=== PATIENT | male | born 1970 | race Caucasian/White ===

== ENCOUNTER 2016-11-02 13:45 | Emergency (ER) | payer MEDICARE, MEDICAID ==
[~2016-11-02] VITALS: Ht 175.3 cm; Wt 217.7 kg
--- NOTE | 2016-11-02 14:02 | ED.ADGEN ---
Adult General Chief Complaint Chief Complaint: anger HPI HPI Patient is a 46 year old morbidly obese male who presents with anger and aggression towards healthcare workers after not being able to sleep for the past 24 hours. Patient states his CPAP broken his upset that a primary care physician is unable to see him for Kassi to obtain and order for a new machine. Patient denies specific intent or plan to kill or harm healthcare worker or any other individual. He expresses frustration and what he considers the lack of willingness for anyone to reach out and help him with his current situation and wants to tell someone off and wants to tell someone off.. Patient is not suicidal. Review of Systems Review of Systems ROS as per HPI. Allergies Allergies Allergies Uncoded Allergies Type Severity Reaction Last Updated Verified Steroids Adverse Reaction Unknown 11/02/16 Physical Exam Physical Exam Constitutional: Well developed, well nourished, no acute distress, non-toxic appearance. [] HENT: Normocephalic, atraumatic, bilateral external ears normal, oropharynx moist, no oral exudates, nose normal. [] Eyes: PERRLA, EOMI, conjunctiva normal, no discharge. [] Neck: Normal range of motion, no tenderness, supple, no stridor. [] Cardiovascular:Heart rate regular rhythm, no murmur [] Lungs & Thorax: Bilateral breath sounds clear to auscultation [] Abdomen: Bowel sounds normal, soft, no tenderness, no masses, no pulsatile masses. [] Skin: Warm, dry, no erythema, no rash. [] Back: No tenderness, no CVA tenderness. [] Extremities: No tenderness, no cyanosis, no clubbing, ROM intact, no edema. [] Neurologic: Alert and oriented X 3, normal motor function, normal sensory function, no focal deficits noted. [] Psychologic: Affect normal, manipulative behavior. [] Current Patient Data Vital Signs Vital Signs Date Time Temp Pulse Resp B/P (MAP) Pulse Ox O2 Delivery O2 Flow Rate FiO2 11/02/16 15:34 54 25 109/72 (84) 97 Room Air 11/02/16 14:00 98.8 98.8 EKG EKG [] Radiology/Procedures Radiology/Procedures [] Course & Med Decision Making Course & Med Decision Making Pertinent Labs and Imaging studies reviewed. (See chart for details) [Patient is very frustrated and upset that he is unable to get a replacement CPAP machine without first being seen by a physician and second having a sleep study ordered. He presents with the ER with demands that requests be immediately taken care of. Patient does not have any respiratory symptoms or complaints while in the emergency department, but rather feels frustrated due to his lack of sleep. When questioned specifically if the patient is homicidal or suicidal, he denies any as intentions of killing or harming himself but states rather that he is frustrated with the situation. Attempts were made to accommodate the patient's request and obtaining a replacement CPAP while the patient was in the emergency department. However, we were unable to find replacement CPAP for the patient. 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 Patient is discharged in stable condition. Courtesy cookie de la rosa was provided. Dragon Disclaimer Dragon Disclaimer This electronic medical record was generated, in whole or in part, using a voice recognition dictation system. HENOK WOODARD DO Nov 02, 2016 14:02
[2016-11-02 15:34] VITALS: BP 109/72
== END 2016-11-02 16:00 | disposition home or self-care (01) ==
LOC: ER 13:45
DX: F91.2 Conduct disorder, adolescent-onset type (principal); R45.4 Irritability and anger; E66.01 Morbid (severe) obesity due to excess calories; Z68.45 Body mass index [BMI] 70 or greater, adult; Z88.8 Allergy status to other drugs, medicaments and biological substances
CPT/HCPCS: 99284

== ENCOUNTER 2017-03-17 02:00 | Inpatient (IN) | payer MEDICARE, OTHER ==
[~2017-03-17] VITALS: Ht 175.3 cm; Wt 193.2 kg
[2017-03-17] VITALS (17 sets, daily range): BP systolic 100–175; BP diastolic 3–97
[2017-03-17] MEDS: IV NORMAL SALINE 1000ML BAG 1,000 ML IV SCH ×3 (03:45→11:45)
[2017-03-17] MEDS ORDERED: POTASSIUM CHLORIDE 20 MEQ TABLET.ER. PO PRN ×2 (03:45)
[2017-03-17] MEDS ORDERED: INSULIN REGULAR VIAL 150 UNIT in 0.9 % SODIUM CHLORIDE 150ML 150 ML IV PRN (03:45)
[2017-03-17 04:14] LABS: BASO # 0.1 x10^3/uL (0.0-0.2); BASO % 1 % (0-3); EOS % 0 % (0-3); HEMATOCRIT 48.1 % (39.0-53.0); HEMOGLOBIN 16.7 g/dL (13.0-17.5); LYMPH # 2.3 x10^3/uL (1.0-4.8); LYMPH % 22 % (24-48); MEAN CORPUSCULAR HEMOGLOBIN 33 pg (25-35); MEAN CORPUSCULAR HGB CONC 35 g/dL (31-37); MEAN CORPUSCULAR VOLUME 94 fL (79-100); MONO % 6 % (0-9); NEUT % 71 % (31-73); PLATELET COUNT 171 x10^3/uL (140-400); RED BLOOD COUNT 5.13 x10^6/uL (4.30-5.70); RED CELL DISTRIBUTION WIDTH 13.7 % (11.5-14.5); WHITE BLOOD COUNT 10.7 x10^3/uL (4.0-11.0)
[2017-03-17 04:35] LABS: CALCIUM 7.9 mg/dL (8.5-10.1); CREATININE 1.3 mg/dL (0.7-1.3); GFR 59.7; MAGNESIUM 2.1 mg/dL (1.8-2.4); PHOSPHORUS 2.4 mg/dL (2.6-4.7); POTASSIUM 3.1 mmol/L (3.5-5.1)
[2017-03-17] MEDS ORDERED: POTASSIUM CHLORIDE 20 MEQ TABLET.ER. PO ONE (05:00)
[2017-03-17] MEDS: IV DEXTROSE 5 %-0.45 % NACL 1,000 ML IV SCH ×3 (05:02→12:33)
[2017-03-17] MEDS ORDERED: ACETAMINOPHEN 500 MG TABLET PO PRN (08:45)
[2017-03-17] MEDS ORDERED: HYDROcodone/APAP 5/325MG 1 TAB TABLET PO PRN (08:45)
[2017-03-17] MEDS ORDERED: CALCIUM CARBONATE 500 MG TAB.CHEW PO PRN (08:45)
[2017-03-17] MEDS ORDERED: IBUPROFEN 400 MG TABLET. PO PRN (08:45)
[2017-03-17] MEDS ORDERED: ONDANSETRON ODT 4 MG TAB.RAPDIS. PO PRN (08:45)
[2017-03-17] MEDS ORDERED: ONDANSETRON PF 4 MG/2 ML VIAL. IV PRN (08:45)
[2017-03-17 09:15] LABS: CALCIUM 8.1 mg/dL (8.5-10.1); CREATININE 1.2 mg/dL (0.7-1.3); GFR 65.5; POTASSIUM 3.5 mmol/L (3.5-5.1)
[2017-03-17] MEDS: POTASSIUM CHLORIDE 20 MEQ TABLET.ER. PO PRN ×2 (09:26→14:20)
--- NOTE | 2017-03-17 10:42 | PDOC1 ---
History and Physical Date of Admission Date of Admission DATE: 03/17/17 TIME: 10:33 Identification/Chief Complaint Chief Complaint Lethargy, "thirsty as hell" Problems: Source Source: Caregiver, Chart review, Patient History of Present Illness History of Present Illness 37-year-old male, morbidly obese with a BMI of 64.5, no known prior medical history, does not take any meds at home. Admitted from [facility] transferred here because of DKA. He has been heat feeling lethargic and "thirsty as hell" , polyuria, polydipsia for the past 2 weeks. He was told to be prediabetic about a year ago. Not on any medications. Hypertensive heart disease runs in the family with his father at age in the 40s. He was advised aspirin daily but he does not take 1. He claims he sometimes takes fish oil when he feels like it". Does not smoke and denies heavy etoh He was found have a blood sugar greater than 300. He was in DKA with a gap of night now 19 bicarbonate of 9, no pH available to me. The rest of his labs are the fall are as follows: Sodium 130,Potassium 3.1 on potassium replacement therapy Insulin drip is running along with dextrose at 2 50 mL an hour because blood sugar is less than 250 and but still a gap is elevated at 19. Creatinine 1.3. Calcium 7.9. Phosphorus is low at 2.4. I feel like this gentleman is a good candidate for metformin. We'll see how he trends if he needs insulin on discharge. But definitely diabetes education is in order Keep in ICU for now as gap is still elevated currently in the insulin drip and dextrose drip. But he does feel better and is actually hungry. We'll start an ADA diet. Past Medical History Cardiovascular: No pertinent hx Pulmonary: No pertinent hx GI: No pertinent hx Heme/Onc: No pertinent hx Hepatobiliary: No pertinent hx Psych: No pertinent hx Rheumatologic: No pertinent hx Infectious disease: No pertinent hx ENT: No pertinent hx Renal/: No pertinent hx Endocrine: No pertinent hx Dermatology: No pertinent hx Past Surgical History Past Surgical History: No pertinent history Family History Family History: Heart Disease, Hypertension Social History Smoke: No ALCOHOL: none Drugs: None Current Medications Current Medications Current Medications Potassium Chloride (Klor-Con) 20 meq PRN Q1HR PRN PO K level is 4 to 5 mEq/L; Start 03/17/17 at 03:45 Potassium Chloride (Klor-Con) 40 meq PRN Q1HR PRN PO K level is 3 to 3.9 mEq/L Last administered on 03/17/17 09:26; Start 03/17/17 at 03:45 Potassium Chloride (Klor-Con) 60 meq PRN Q1HR PRN PO K level < 3 mEq/L; Start 03/17/17 at 03:45 Sodium Chloride 1,000 ml @ 250 mls/hr Q4H IV ; Start 03/17/17 at 03:45 Sodium Chloride 1,000 ml @ 250 mls/hr Q4H IV ; Start 03/17/17 at 03:45 Dextrose/Sodium Chloride 1,000 ml @ 250 mls/hr Q4H IV Last administered on 08:04; Start 03/17/17 at 03:45 Insulin Human Regular 150 unit/ Sodium Chloride 151.5 ml @ 0 mls/hr CONT PRN PRN IV PER PROTOCOL Last administered on 03/17/17 05:05; Start 03/17/17 at 03 :45 Potassium Chloride (Klor-Con) 40 meq 1X ONCE PO Last administered on 05:06; Start 03/17/17 at 05:00; Stop 03/17/17 at 05:02; Status DC Ondansetron HCl (Zofran) 4 mg PRN Q6HRS PRN IV NAUSEA/VOMITING; Start at 08:45 Ondansetron HCl (Zofran Odt) 4 mg PRN Q6HRS PRN PO NAUSEA/VOMITING; Start at 08:45 Acetaminophen (Tylenol) 500 mg PRN Q6HRS PRN PO MILD PAIN / TEMP Last administered on 03/17/17 08:50; Start 03/17/17 at 08:45 Acetaminophen/ Hydrocodone Bitart (Lortab 5/325) 1 tab PRN Q4HRS PRN PO PAIN; Start 03/17/17 at 08:45 Ibuprofen (Motrin) 400 mg PRN Q6HRS PRN PO INFLAMMATION; Start 03/17/17 at 08: 45 Calcium Carbonate/ Glycine (Tums) 500 mg PRN AFTMEALHC PRN PO INDIGESTION; Start 03/17/17 at 08:45 Allergies Allergies: Uncoded Allergies: Steroids (Adverse Reaction, Unknown, 11/02/16) ROS Review of System Generalized weakness but now better, no shortness of breath no chest pain, no abdominal pain, no diarrhea, hungry A 14 point ROS was completed with the following noted as positive: Other systems reviewed and negative. \\CONSTITUTIONAL: No fever or chills EYES: No recent changes SKIN: No rash or itching CARDIOVASCULAR: No chest pain, syncope, palpitations, or edema RESPIRATORY: No SOB or cough GASTROINTESTINAL: No nausea, vomiting or abdominal pain NEUROLOGICAL: No headaches or weakness ENDOCRINE: No cold or heat intolerance GENITOURINARY: No urgency or frequency of urination MUSCULOSKELETAL: No back pain or joint pain LYMPHATICS: No enlarged lymph nodes PSYCHIATRIC: No anxiety or depression Physical Exam General: Alert, Oriented X3, Cooperative, No acute distress, Other (super morbidly obese with a BMI 64.5) HEENT: PERRLA Lungs: Clear to auscultation, Normal air movement Heart: S1S2, RRR, no gallops, no murmurs Cardiovascular: S1 Abdomen: Normal bowel sounds, Soft, No tenderness, No hepatosplenomegaly, No masses Male Genitals Exam: normal genitalia, normal prostate Rectal Exam: not examined PELVIC: Nml ext genitalia Extremities: No clubbing, No cyanosis, No edema, Normal pulses, No tenderness/ swelling Skin: No rashes, No breakdown, No significant lesion Neuro: Normal gait, Normal speech, Strength at 5/5 X4 ext, Normal tone, Sensation intact, Cranial nerves 3-12 NL, Reflexes 2+ Psych/Mental Status: Mental status NL, Mood NL Vitals Vitals Vital Signs Date Time Temp Pulse Resp B/P (MAP) Pulse Ox O2 Delivery O2 Flow Rate FiO2 03/17/17 09:08 86 21 140/83 (102) Room Air 03/17/17 08:00 98.3 98.3 03/17/17 07:00 98 Labs Labs Laboratory Tests Test 03/17/17 04:00 03/17/17 08:45 White Blood Count 10.7 x10^3/uL (4.0-11.0) Red Blood Count 5.13 x10^6/uL (4.30-5.70) Hemoglobin 16.7 g/dL (13.0-17.5) Hematocrit 48.1 % (39.0-53.0) Mean Corpuscular Volume 94 fL (79-100) Mean Corpuscular Hemoglobin 33 pg (25-35) Mean Corpuscular Hemoglobin Concent 35 g/dL (31-37) Red Cell Distribution Width 13.7 % (11.5-14.5) Platelet Count 171 x10^3/uL (140-400) Neutrophils (%) (Auto) 71 % (31-73) Lymphocytes (%) (Auto) 22 % (24-48) Monocytes (%) (Auto) 6 % (0-9) Eosinophils (%) (Auto) 0 % (0-3) Basophils (%) (Auto) 1 % (0-3) Neutrophils # (Auto) 7.7 x10^3uL (1.8-7.7) Lymphocytes # (Auto) 2.3 x10^3/uL (1.0-4.8) Monocytes # (Auto) 0.7 x10^3/uL (0.0-1.1) Eosinophils # (Auto) 0.0 x10^3/uL (0.0-0.7) Basophils # (Auto) 0.1 x10^3/uL (0.0-0.2) Sodium Level 130 mmol/L (136-145) 133 mmol/L (136-145) Potassium Level 3.1 mmol/L (3.5-5.1) 3.5 mmol/L (3.5-5.1) Chloride Level 96 mmol/L (98-107) 100 mmol/L (98-107) Carbon Dioxide Level 9 mmol/L (21-32) 14 mmol/L (21-32) Anion Gap 25 (6-14) 19 (6-14) Blood Urea Nitrogen 12 mg/dL (8-26) 12 mg/dL (8-26) Creatinine 1.3 mg/dL (0.7-1.3) 1.2 mg/dL (0.7-1.3) Estimated GFR (Cockcroft-Gault) 59.7 65.5 Glucose Level 266 mg/dL (70-99) 156 mg/dL (70-99) Calcium Level 7.9 mg/dL (8.5-10.1) 8.1 mg/dL (8.5-10.1) Phosphorus Level 2.4 mg/dL (2.6-4.7) 1.9 mg/dL (2.6-4.7) Magnesium Level 2.1 mg/dL (1.8-2.4) Laboratory Tests Test 03/17/17 04:00 03/17/17 08:45 White Blood Count 10.7 x10^3/uL (4.0-11.0) Red Blood Count 5.13 x10^6/uL (4.30-5.70) Hemoglobin 16.7 g/dL (13.0-17.5) Hematocrit 48.1 % (39.0-53.0) Mean Corpuscular Volume 94 fL (79-100) Mean Corpuscular Hemoglobin 33 pg (25-35) Mean Corpuscular Hemoglobin Concent 35 g/dL (31-37) Red Cell Distribution Width 13.7 % (11.5-14.5) Platelet Count 171 x10^3/uL (140-400) Neutrophils (%) (Auto) 71 % (31-73) Lymphocytes (%) (Auto) 22 % (24-48) Monocytes (%) (Auto) 6 % (0-9) Eosinophils (%) (Auto) 0 % (0-3) Basophils (%) (Auto) 1 % (0-3) Neutrophils # (Auto) 7.7 x10^3uL (1.8-7.7) Lymphocytes # (Auto) 2.3 x10^3/uL (1.0-4.8) Monocytes # (Auto) 0.7 x10^3/uL (0.0-1.1) Eosinophils # (Auto) 0.0 x10^3/uL (0.0-0.7) Basophils # (Auto) 0.1 x10^3/uL (0.0-0.2) Sodium Level 130 mmol/L (136-145) 133 mmol/L (136-145) Potassium Level 3.1 mmol/L (3.5-5.1) 3.5 mmol/L (3.5-5.1) Chloride Level 96 mmol/L (98-107) 100 mmol/L (98-107) Carbon Dioxide Level 9 mmol/L (21-32) 14 mmol/L (21-32) Anion Gap 25 (6-14) 19 (6-14) Blood Urea Nitrogen 12 mg/dL (8-26) 12 mg/dL (8-26) Creatinine 1.3 mg/dL (0.7-1.3) 1.2 mg/dL (0.7-1.3) Estimated GFR (Cockcroft-Gault) 59.7 65.5 Glucose Level 266 mg/dL (70-99) 156 mg/dL (70-99) Calcium Level 7.9 mg/dL (8.5-10.1) 8.1 mg/dL (8.5-10.1) Phosphorus Level 2.4 mg/dL (2.6-4.7) 1.9 mg/dL (2.6-4.7) Magnesium Level 2.1 mg/dL (1.8-2.4) VTE Prophylaxis Ordered VTE Prophylaxis Devices: Yes VTE Pharmacological Prophylaxi: Yes Assessment/Plan Assessment/Plan 1. DKA 2. New type 1 DM - new dx 3. Super morbid obesity 4. HYpokalemia 5. Hypophosphatemia 6. PSeudohyponatremia 7 MIld to mod PCM 8. DAE, vasomotor 9. HYpochloremia - also on NS at 150cc.hr Plan: Gap is still elevated, hence still need to keep in the ICU with insulin drip and dextrose fluids his blood sugars less than 250 Diabetes education Start metformin 500 mg by mouth twice a day Awaiting hemoglobin A1c BMP every 4 until gap closes Replace potassium Phosphorus is also low would start Neutra-Phos 1 packet by mouth twice a day, repeat labs tomorrow Did evp general counsel her him on losing weight and diabetes education etc. Would advise primary prevention with aspirin given family history of CAD premature in his father at age 40s. Discussed with [employer] AUTHOR cc 31 mins JOSE JIMÉNEZ MD Mar 17, 2017 10:41
[2017-03-17] MEDS: POTASSIUM & SODIUM PHOSPHATES PACKET. PO SCH ×2 (11:30→22:15)
[2017-03-17 13:08] LABS: CALCIUM 8.3 mg/dL (8.5-10.1); CREATININE 1.2 mg/dL (0.7-1.3); GFR 65.5; MAGNESIUM 2.2 mg/dL (1.8-2.4); POTASSIUM 3.5 mmol/L (3.5-5.1)
[2017-03-17] MEDS ORDERED: DEXTROSE 50% 25 GM / 50ML DISP.SYRIN. IV PRN (14:30)
[2017-03-17] MEDS ORDERED: INSULIN DETEMIR 300 UNITS/3 ML INSULN.PEN. SQ ONE (16:00)
[2017-03-17] MEDS ORDERED: metFORMIN 850 MG TABLET PO SCH (17:00)
[2017-03-17] MEDS: INSULIN ASPART 300 UNITS/3 ML INSULN.PEN SQ SCH (18:45)
[2017-03-17] MEDS ORDERED: INSULIN DETEMIR 300 UNITS/3 ML INSULN.PEN. SQ SCH (21:00)
[2017-03-17] MEDS: IV 1/2 NORMAL SALINE 1,000 ML IV SCH ×4 (22:16→22:34)
[2017-03-17] MEDS: BACITRACIN TOPICAL OINT 14GM TUBE. TP SCH (22:31)
[2017-03-18 02:00] VITALS: BP 144/84
[2017-03-18 04:40] LABS: CALCIUM 8.7 mg/dL (8.5-10.1); CREATININE 1.2 mg/dL (0.7-1.3); GFR 65.5; POTASSIUM 3.3 mmol/L (3.5-5.1)
[2017-03-18] MEDS: IV 1/2 NORMAL SALINE 1,000 ML IV SCH ×3 (05:24→21:42)
[2017-03-18 07:00] VITALS: BP 135/90
[2017-03-18] MEDS: ASPIRIN CHEWABLE 81 MG TABLET. PO SCH (08:47)
[2017-03-18] MEDS: POTASSIUM & SODIUM PHOSPHATES PACKET. PO SCH ×2 (08:48→21:41)
[2017-03-18] MEDS: INSULIN ASPART 300 UNITS/3 ML INSULN.PEN SQ SCH ×6 (08:54→16:54)
--- NOTE | 2017-03-18 10:26 | PDOC ---
PROGRESS NOTES Chief Complaint Chief Complaint 1. DKA 2. New type 1 DM per ICU physician diagnosis. - new dx, likely features of DM2 as well, would DC on both insulin and metformin 3 morbid obesity, BMI 65 (sixty-five) 4. Hypokalemia 5. Hypophosphatemia 6 MIld protein malnutrition due to DM 8. DAE, vasomotor History of Present Illness History of Present Illness Gap is still elevated, DM education, he is resistant to change, wants double portion meals metformin 500 mg by mouth twice a day, I would advance to 1000 BID s/p levemir, start glipizide, hemoglobin A1c BMP every 4 until gap closes Replace potassium Phosphorus is also low would start Neutra-Phos 1 packet by mouth twice a day, repeat labs tomorrow Did litigation counsel her him on losing weight and diabetes education etc. Would advise primary prevention with aspirin given family history of CAD premature in his father at age 40s. Discussed with [employer]CHIT[employer] Vitals Vitals Vital Signs Date Time Temp Pulse Resp B/P (MAP) Pulse Ox O2 Delivery O2 Flow Rate FiO2 03/18/17 08:00 Room Air 03/18/17 07:00 97.7 79 17 135/90 (105) 98 97.7 Physical Exam General: Alert, Oriented X3, Cooperative, No acute distress, Other (super morbidly obese with a BMI 64.5) Heart: Regular rate, No murmurs Abdomen: Normal bowel sounds, Soft, No tenderness, No hepatosplenomegaly, No masses Extremities: No clubbing, No cyanosis, No edema, Normal pulses, No tenderness/ swelling Skin: No rashes, No breakdown, No significant lesion Labs LABS Laboratory Tests Test 03/17/17 12:53 03/17/17 13:31 03/17/17 14:56 03/17/17 16:30 Sodium Level 133 mmol/L (136-145) Potassium Level 3.5 mmol/L (3.5-5.1) Chloride Level 103 mmol/L (98-107) Carbon Dioxide Level 16 mmol/L (21-32) Anion Gap 14 (6-14) Blood Urea Nitrogen 12 mg/dL (8-26) Creatinine 1.2 mg/dL (0.7-1.3) Estimated GFR (Cockcroft-Gault) 65.5 Glucose Level 121 mg/dL (70-99) Calcium Level 8.3 mg/dL (8.5-10.1) Magnesium Level 2.2 mg/dL (1.8-2.4) Glucose (Fingerstick) 172 mg/dL (70-99) 251 mg/dL (70-99) 178 mg/dL (70-99) Test 03/17/17 18:33 03/17/17 21:05 03/18/17 03:30 03/18/17 07:18 Glucose (Fingerstick) 235 mg/dL (70-99) 305 mg/dL (70-99) 267 mg/dL (70-99) Sodium Level 136 mmol/L (136-145) Potassium Level 3.3 mmol/L (3.5-5.1) Chloride Level 104 mmol/L (98-107) Carbon Dioxide Level 16 mmol/L (21-32) Anion Gap 16 (6-14) Blood Urea Nitrogen 11 mg/dL (8-26) Creatinine 1.2 mg/dL (0.7-1.3) Estimated GFR (Cockcroft-Gault) 65.5 Glucose Level 295 mg/dL (70-99) Calcium Level 8.7 mg/dL (8.5-10.1) Review of Systems Review of Systems no nv..d\ Assessment and Plan Assessmemt and Plan DC when gap closed, ICU physician gave Dm1 education yesterday, DM2 seems more likely due to his size, and Calvin Aranda had wanted to start metformin previously Problems: Comment Review of Relevant I have reviewed the following items gregory (where applicable) has been applied. Labs Laboratory Tests Test 03/17/17 03:00 03/17/17 04:00 03/17/17 08:45 03/17/17 12:53 Nasal Screen MRSA (PCR) Negative (Negative) White Blood Count 10.7 x10^3/uL (4.0-11.0) Red Blood Count 5.13 x10^6/uL (4.30-5.70) Hemoglobin 16.7 g/dL (13.0-17.5) Hematocrit 48.1 % (39.0-53.0) Mean Corpuscular Volume 94 fL (79-100) Mean Corpuscular Hemoglobin 33 pg (25-35) Mean Corpuscular Hemoglobin Concent 35 g/dL (31-37) Red Cell Distribution Width 13.7 % (11.5-14.5) Platelet Count 171 x10^3/uL (140-400) Neutrophils (%) (Auto) 71 % (31-73) Lymphocytes (%) (Auto) 22 % (24-48) Monocytes (%) (Auto) 6 % (0-9) Eosinophils (%) (Auto) 0 % (0-3) Basophils (%) (Auto) 1 % (0-3) Neutrophils # (Auto) 7.7 x10^3uL (1.8-7.7) Lymphocytes # (Auto) 2.3 x10^3/uL (1.0-4.8) Monocytes # (Auto) 0.7 x10^3/uL (0.0-1.1) Eosinophils # (Auto) 0.0 x10^3/uL (0.0-0.7) Basophils # (Auto) 0.1 x10^3/uL (0.0-0.2) Sodium Level 130 mmol/L (136-145) 133 mmol/L (136-145) 133 mmol/L (136-145) Potassium Level 3.1 mmol/L (3.5-5.1) 3.5 mmol/L (3.5-5.1) 3.5 mmol/L (3.5-5.1) Chloride Level 96 mmol/L (98-107) 100 mmol/L (98-107) 103 mmol/L (98-107) Carbon Dioxide Level 9 mmol/L (21-32) 14 mmol/L (21-32) 16 mmol/L (21-32) Anion Gap 25 (6-14) 19 (6-14) 14 (6-14) Blood Urea Nitrogen 12 mg/dL (8-26) 12 mg/dL (8-26) 12 mg/dL (8-26) Creatinine 1.3 mg/dL (0.7-1.3) 1.2 mg/dL (0.7-1.3) 1.2 mg/dL (0.7-1.3) Estimated GFR (Cockcroft-Gault) 59.7 65.5 65.5 Glucose Level 266 mg/dL (70-99) 156 mg/dL (70-99) 121 mg/dL (70-99) Hemoglobin A1c 11.5 % (4.8-5.6) Calcium Level 7.9 mg/dL (8.5-10.1) 8.1 mg/dL (8.5-10.1) 8.3 mg/dL (8.5-10.1) Phosphorus Level 2.4 mg/dL (2.6-4.7) 1.9 mg/dL (2.6-4.7) Magnesium Level 2.1 mg/dL (1.8-2.4) 2.2 mg/dL (1.8-2.4) Test 03/17/17 13:31 03/17/17 14:56 03/17/17 16:30 03/17/17 18:33 Glucose (Fingerstick) 172 mg/dL (70-99) 251 mg/dL (70-99) 178 mg/dL (70-99) 235 mg/dL (70-99) Test 03/17/17 21:05 03/18/17 03:30 03/18/17 07:18 Glucose (Fingerstick) 305 mg/dL (70-99) 267 mg/dL (70-99) Sodium Level 136 mmol/L (136-145) Potassium Level 3.3 mmol/L (3.5-5.1) Chloride Level 104 mmol/L (98-107) Carbon Dioxide Level 16 mmol/L (21-32) Anion Gap 16 (6-14) Blood Urea Nitrogen 11 mg/dL (8-26) Creatinine 1.2 mg/dL (0.7-1.3) Estimated GFR (Cockcroft-Gault) 65.5 Glucose Level 295 mg/dL (70-99) Calcium Level 8.7 mg/dL (8.5-10.1) Laboratory Tests Test 03/17/17 12:53 03/17/17 13:31 03/17/17 14:56 03/17/17 16:30 Sodium Level 133 mmol/L (136-145) Potassium Level 3.5 mmol/L (3.5-5.1) Chloride Level 103 mmol/L (98-107) Carbon Dioxide Level 16 mmol/L (21-32) Anion Gap 14 (6-14) Blood Urea Nitrogen 12 mg/dL (8-26) Creatinine 1.2 mg/dL (0.7-1.3) Estimated GFR (Cockcroft-Gault) 65.5 Glucose Level 121 mg/dL (70-99) Calcium Level 8.3 mg/dL (8.5-10.1) Magnesium Level 2.2 mg/dL (1.8-2.4) Glucose (Fingerstick) 172 mg/dL (70-99) 251 mg/dL (70-99) 178 mg/dL (70-99) Test 03/17/17 18:33 03/17/17 21:05 03/18/17 03:30 03/18/17 07:18 Glucose (Fingerstick) 235 mg/dL (70-99) 305 mg/dL (70-99) 267 mg/dL (70-99) Sodium Level 136 mmol/L (136-145) Potassium Level 3.3 mmol/L (3.5-5.1) Chloride Level 104 mmol/L (98-107) Carbon Dioxide Level 16 mmol/L (21-32) Anion Gap 16 (6-14) Blood Urea Nitrogen 11 mg/dL (8-26) Creatinine 1.2 mg/dL (0.7-1.3) Estimated GFR (Cockcroft-Gault) 65.5 Glucose Level 295 mg/dL (70-99) Calcium Level 8.7 mg/dL (8.5-10.1) Medications Current Medications Potassium Chloride (Klor-Con) 20 meq PRN Q1HR PRN PO K level is 4 to 5 mEq/L; Start 03/17/17 at 03:45 Potassium Chloride (Klor-Con) 40 meq PRN Q1HR PRN PO K level is 3 to 3.9 mEq/L Last administered on 03/17/17t 14:20; Start 03/17/17 at 03:45 Potassium Chloride (Klor-Con) 60 meq PRN Q1HR PRN PO K level < 3 mEq/L; Start 03/17/17 at 03:45 Sodium Chloride 1,000 ml @ 250 mls/hr Q4H IV ; Start 03/17/17 at 03:45; Stop 03/17/17 at 14:19; Status DC Sodium Chloride 1,000 ml @ 125 mls/hr Q8H IV Last administered on 03/18/17 05:24; Start 03/17/17 at 03:45 Dextrose/Sodium Chloride 1,000 ml @ 150 mls/hr Q6H40M IV Last administered on 03/17/17 08:04; Start 03/17/17 at 03:45; Stop 03/17/17 at 14:19; Status DC Insulin Human Regular 150 unit/ Sodium Chloride 151.5 ml @ 0 mls/hr CONT PRN PRN IV PER PROTOCOL Last administered on 03/17/17 05:05; Start 03/17/17 at 03 :45; Stop 03/17/17 at 14:19; Status DC Potassium Chloride (Klor-Con) 40 meq 1X ONCE PO Last administered on 05:06; Start 03/17/17 at 05:00; Stop 03/17/17 at 05:02; Status DC Ondansetron HCl (Zofran) 4 mg PRN Q6HRS PRN IV NAUSEA/VOMITING; Start at 08:45 Ondansetron HCl (Zofran Odt) 4 mg PRN Q6HRS PRN PO NAUSEA/VOMITING; Start at 08:45 Acetaminophen (Tylenol) 500 mg PRN Q6HRS PRN PO MILD PAIN / TEMP Last administered on 03/17/17 08:50; Start 03/17/17 at 08:45 Acetaminophen/ Hydrocodone Bitart (Lortab 5/325) 1 tab PRN Q4HRS PRN PO PAIN; Start 03/17/17 at 08:45 Ibuprofen (Motrin) 400 mg PRN Q6HRS PRN PO INFLAMMATION; Start 03/17/17 at 08: 45 Calcium Carbonate/ Glycine (Tums) 500 mg PRN AFTMEALHC PRN PO INDIGESTION Last administered on 03/17/17 22:08; Start 03/17/17 at 08:45 Potassium Phos/ Sodium Phos (Phos-Nak) 1 pkt BID PO Last administered on 08:48; Start 03/17/17 at 11:30 Insulin Aspart (NovoLOG) 0-9 UNITS TIDWMEALS SQ Last administered on 08:55; Start 03/17/17 at 17:00 Dextrose (Dextrose 50%-Water Syringe) 12.5 gm PRN Q15MIN PRN IV SEE COMMENTS; Start 03/17/17 at 14:30 Insulin Detemir (Levemir) 15 units QHS SQ ; Start 03/17/17 at 21:00; Stop at 21:31; Status DC Metformin HCl (Glucophage) 850 mg BIDWMEALS PO Last administered on 03/17/17 18:02; Start 03/17/17 at 17:00; Stop 03/17/17 at 21:32; Status DC Insulin Detemir (Levemir) 15 units 1X ONCE SQ Last administered on 03/17/17 15:48; Start 03/17/17 at 16:00; Stop 03/17/17 at 16:01; Status DC Insulin Detemir (Levemir) 30 units QHS SQ Last administered on 03/17/17 22:28 ; Start 03/18/17 at 21:00 Insulin Aspart (NovoLOG) 10 units TIDAC SQ Last administered on 03/18/17 08: 54; Start 03/18/17 at 07:30 Metformin HCl (Glucophage) 1,000 mg BIDWMEALS PO Last administered on 08:47; Start 03/18/17 at 08:00 Aspirin (Children'S Aspirin) 81 mg DAILYWBKFT PO Last administered on 08:47; Start 03/18/17 at 08:00 Bacitracin 1 phuong TID TP Last administered on 03/17/17 22:31; Start 03/18/17 at 09:00 Glipizide (Glucotrol) 5 mg BIDBFRMEAL PO ; Start 03/18/17 at 10:00 Vitals/I & O Vital Sign - Last 24 Hours 03/17/17 03/17/17 03/17/17 03/17/17 11:00 12:00 12:00 13:00 Temp 98.3 98.3 Pulse 84 85 86 Resp 18 20 20 B/P (MAP) 100/74 (83) 118/73 (88) 144/73 (96) O2 Delivery Room Air Room Air Room Air Room Air 03/17/17 03/17/17 03/17/17 03/17/17 14:00 16:00 17:30 20:00 Temp 98.6 98.6 Pulse 86 86 87 Resp 20 20 22 B/P (MAP) 175/75 (108) 109/66 (80) 143/86 (105) Pulse Ox 96 O2 Delivery Room Air Room Air Room Air Room Air 03/17/17 03/17/17 03/17/17 03/18/17 20:01 22:14 23:30 02:00 Temp 98.0 98.0 Pulse 94 Resp 22 B/P (MAP) 144/84 (104) Pulse Ox 98 98 99 O2 Delivery Room Air Room Air 03/18/17 03/18/17 07:00 08:00 Temp 97.7 97.7 Pulse 79 Resp 17 B/P (MAP) 135/90 (105) Pulse Ox 98 O2 Delivery Room Air Room Air Intake and Output 03/17/17 03/17/17 03/18/17 15:00 23:00 07:00 Intake Total 2690 ml 250 ml 100 ml Output Total 3025 ml 750 ml Balance -335 ml -500 ml 100 ml LAURA RIVERA MD Mar 18, 2017 10:26
[2017-03-18 10:50] VITALS: BP 140/80
[2017-03-18] MEDS: glipiZIDE 5 MG TABLET PO SCH ×2 (11:32→16:48)
[2017-03-18 14:47] VITALS: BP 110/75
[2017-03-18] MEDS: BACITRACIN TOPICAL OINT 14GM TUBE. TP SCH ×2 (16:49→21:38)
[2017-03-18 20:00] VITALS: BP 134/53
[2017-03-18] MEDS ORDERED: INSULIN DETEMIR 300 UNITS/3 ML INSULN.PEN. SQ SCH (21:00)
[2017-03-18] MEDS: INSULIN DETEMIR 300 UNITS/3 ML INSULN.PEN. SQ SCH (21:49)
[2017-03-18 23:00] VITALS: BP 125/75
[2017-03-19 03:00] VITALS: BP 125/80
[2017-03-19] MEDS: IV 1/2 NORMAL SALINE 1,000 ML IV SCH ×3 (04:22→20:11)
[2017-03-19 08:00] VITALS: BP 117/78
[2017-03-19] MEDS: INSULIN ASPART 300 UNITS/3 ML INSULN.PEN SQ SCH ×6 (08:18→17:53)
[2017-03-19] MEDS: BACITRACIN TOPICAL OINT 14GM TUBE. TP SCH ×3 (09:00→21:15)
[2017-03-19] MEDS: ASPIRIN CHEWABLE 81 MG TABLET. PO SCH (09:57)
[2017-03-19] MEDS: glipiZIDE 5 MG TABLET PO SCH ×2 (09:57→17:43)
[2017-03-19] MEDS: POTASSIUM & SODIUM PHOSPHATES PACKET. PO SCH ×2 (09:57→21:16)
--- NOTE | 2017-03-19 11:20 | PDOC ---
PROGRESS NOTES Chief Complaint Chief Complaint 1. DKA 2. New type 1 DM per ICU physician diagnosis. - new dx, likely features of DM2 as well, would DC on both insulin and metformin 3 morbid obesity, BMI 65 (sixty-five) 4. Hypokalemia 5. Hypophosphatemia 6 MIld protein malnutrition due to DM 8. DAE, vasomotor History of Present Illness History of Present Illness Patient seen and examined. No acute events overnight. Patient denies chest pain , shortness of breath, dizziness, weakness, fevers/chills. Vitals Vitals Vital Signs Date Time Temp Pulse Resp B/P (MAP) Pulse Ox O2 Delivery O2 Flow Rate FiO2 03/19/17 08:00 97.7 72 20 117/78 (91) 97 Nasal Cannula 3.0 97.7 Physical Exam General: Alert, Oriented X3, Cooperative, No acute distress, Other (super morbidly obese with a BMI 64.5) Heart: Regular rate, No murmurs Abdomen: Normal bowel sounds, Soft, No tenderness, No hepatosplenomegaly, No masses Extremities: No clubbing, No cyanosis, No edema, Normal pulses, No tenderness/ swelling Skin: No rashes, No breakdown, No significant lesion Labs LABS Laboratory Tests Test 03/18/17 16:24 03/18/17 21:39 03/19/17 07:41 Glucose (Fingerstick) 251 mg/dL (70-99) 297 mg/dL (70-99) 231 mg/dL (70-99) Review of Systems Review of Systems Denies chest pain, shortness of breath or dizziness. Assessment and Plan Assessmemt and Plan 1. DKA 2. New type 1 DM, likely features of DM2 as well, would DC on both insulin and metformin 3 morbid obesity, BMI 65 (sixty-five) 4. Hypokalemia 5. Hypophosphatemia 6 MIld protein malnutrition due to DM 8. DAE, vasomotor Plan: Recheck AM labs BMP until gap closes DM education Metformin 1000 BID Insulin-Levemir, glipizide ADA Diet mIVF NS @125ml/hr Potassium replacement ASA, given family history of CAD PT/OT Possible discharge tomorrow if gap is within normal limits Problems: Comment Review of Relevant I have reviewed the following items gregory (where applicable) has been applied. Labs Laboratory Tests Test 03/17/17 11:52 03/17/17 12:26 03/17/17 12:53 03/17/17 13:31 Glucose (Fingerstick) 141 mg/dL (70-99) 106 mg/dL (70-99) 172 mg/dL (70-99) Sodium Level 133 mmol/L (136-145) Potassium Level 3.5 mmol/L (3.5-5.1) Chloride Level 103 mmol/L (98-107) Carbon Dioxide Level 16 mmol/L (21-32) Anion Gap 14 (6-14) Blood Urea Nitrogen 12 mg/dL (8-26) Creatinine 1.2 mg/dL (0.7-1.3) Estimated GFR (Cockcroft-Gault) 65.5 Glucose Level 121 mg/dL (70-99) Calcium Level 8.3 mg/dL (8.5-10.1) Magnesium Level 2.2 mg/dL (1.8-2.4) Test 03/17/17 14:56 03/17/17 16:30 03/17/17 18:33 03/17/17 21:05 Glucose (Fingerstick) 251 mg/dL (70-99) 178 mg/dL (70-99) 235 mg/dL (70-99) 305 mg/dL (70-99) Test 03/18/17 03:30 03/18/17 07:18 03/18/17 11:13 03/18/17 16:24 Sodium Level 136 mmol/L (136-145) Potassium Level 3.3 mmol/L (3.5-5.1) Chloride Level 104 mmol/L (98-107) Carbon Dioxide Level 16 mmol/L (21-32) Anion Gap 16 (6-14) Blood Urea Nitrogen 11 mg/dL (8-26) Creatinine 1.2 mg/dL (0.7-1.3) Estimated GFR (Cockcroft-Gault) 65.5 Glucose Level 295 mg/dL (70-99) Calcium Level 8.7 mg/dL (8.5-10.1) Glucose (Fingerstick) 267 mg/dL (70-99) 407 mg/dL (70-99) 251 mg/dL (70-99) Test 03/18/17 21:39 03/19/17 07:41 Glucose (Fingerstick) 297 mg/dL (70-99) 231 mg/dL (70-99) Laboratory Tests Test 03/18/17 16:24 03/18/17 21:39 03/19/17 07:41 Glucose (Fingerstick) 251 mg/dL (70-99) 297 mg/dL (70-99) 231 mg/dL (70-99) Medications Current Medications Potassium Chloride (Klor-Con) 20 meq PRN Q1HR PRN PO K level is 4 to 5 mEq/L; Start 03/17/17 at 03:45 Potassium Chloride (Klor-Con) 40 meq PRN Q1HR PRN PO K level is 3 to 3.9 mEq/L Last administered on 03/17/17 14:20; Start 03/17/17 at 03:45 Potassium Chloride (Klor-Con) 60 meq PRN Q1HR PRN PO K level < 3 mEq/L; Start 03/17/17 at 03:45 Sodium Chloride 1,000 ml @ 250 mls/hr Q4H IV ; Start 03/17/17 at 03:45; Stop 03/17/17 at 14:19; Status DC Sodium Chloride 1,000 ml @ 125 mls/hr Q8H IV Last administered on 03/19/17 04:22; Start 03/17/17 at 03:45 Dextrose/Sodium Chloride 1,000 ml @ 150 mls/hr Q6H40M IV Last administered on 03/17/17 08:04; Start 03/17/17 at 03:45; Stop 03/17/17 at 14:19; Status DC Insulin Human Regular 150 unit/ Sodium Chloride 151.5 ml @ 0 mls/hr CONT PRN PRN IV PER PROTOCOL Last administered on 03/17/17 05:05; Start 03/17/17 at 03 :45; Stop 03/17/17 at 14:19; Status DC Potassium Chloride (Klor-Con) 40 meq 1X ONCE PO Last administered on 05:06; Start 03/17/17 at 05:00; Stop 03/17/17 at 05:02; Status DC Ondansetron HCl (Zofran) 4 mg PRN Q6HRS PRN IV NAUSEA/VOMITING; Start at 08:45 Ondansetron HCl (Zofran Odt) 4 mg PRN Q6HRS PRN PO NAUSEA/VOMITING; Start at 08:45 Acetaminophen (Tylenol) 500 mg PRN Q6HRS PRN PO MILD PAIN / TEMP Last administered on 03/17/17 08:50; Start 03/17/17 at 08:45 Acetaminophen/ Hydrocodone Bitart (Lortab 5/325) 1 tab PRN Q4HRS PRN PO PAIN; Start 03/17/17 at 08:45 Ibuprofen (Motrin) 400 mg PRN Q6HRS PRN PO INFLAMMATION; Start 03/17/17 at 08: 45 Calcium Carbonate/ Glycine (Tums) 500 mg PRN AFTMEALHC PRN PO INDIGESTION Last administered on 03/17/17 22:08; Start 03/17/17 at 08:45 Potassium Phos/ Sodium Phos (Phos-Nak) 1 pkt BID PO Last administered on 09:57; Start 03/17/17 at 11:30 Insulin Aspart (NovoLOG) 0-9 UNITS TIDWMEALS SQ Last administered on 08:19; Start 03/17/17 at 17:00 Dextrose (Dextrose 50%-Water Syringe) 12.5 gm PRN Q15MIN PRN IV SEE COMMENTS; Start 03/17/17 at 14:30 Insulin Detemir (Levemir) 15 units QHS SQ ; Start 03/17/17 at 21:00; Stop at 21:31; Status DC Metformin HCl (Glucophage) 850 mg BIDWMEALS PO Last administered on 03/17/17 18:02; Start 03/17/17 at 17:00; Stop 03/17/17 at 21:32; Status DC Insulin Detemir (Levemir) 15 units 1X ONCE SQ Last administered on 03/17/17 15:48; Start 03/17/17 at 16:00; Stop 03/17/17 at 16:01; Status DC Insulin Detemir (Levemir) 30 units QHS SQ Last administered on 03/17/17 22:28 ; Start 03/18/17 at 21:00; Stop 03/18/17 at 21:00; Status DC Insulin Aspart (NovoLOG) 10 units TIDAC SQ Last administered on 03/18/17 11: 35; Start 03/18/17 at 07:30; Stop 03/18/17 at 12:08; Status DC Metformin HCl (Glucophage) 1,000 mg BIDWMEALS PO Last administered on 09:57; Start 03/18/17 at 08:00 Aspirin (Children'S Aspirin) 81 mg DAILYWBKFT PO Last administered on 09:57; Start 03/18/17 at 08:00 Bacitracin 1 puhong TID TP Last administered on 03/18/17 21:38; Start 03/18/17 at 09:00 Glipizide (Glucotrol) 5 mg BIDBFRMEAL PO Last administered on 03/19/17 09:57 ; Start 03/18/17 at 10:00 Insulin Aspart (NovoLOG) 18 units TIDAC SQ Last administered on 03/19/17 08: 18; Start 03/18/17 at 16:30 Insulin Detemir (Levemir) 45 units QHS SQ Last administered on 03/18/17 21:49 ; Start 03/18/17 at 21:00 Vitals/I & O Vital Sign - Last 24 Hours 03/18/17 03/18/17 03/18/17 03/18/17 14:47 20:00 20:11 23:00 Temp 98.8 98.5 97.7 98.8 98.5 97.7 Pulse 80 85 87 Resp 18 20 18 B/P (MAP) 110/75 (87) 134/53 (80) 125/75 (92) Pulse Ox 92 98 95 O2 Delivery Room Air Room Air Room Air Room Air 03/19/17 03/19/17 03/19/17 00:29 03:00 08:00 Temp 98.7 97.7 98.7 97.7 Pulse 86 72 Resp 20 20 B/P (MAP) 125/80 (95) 117/78 (91) Pulse Ox 96 97 O2 Delivery Room Air Room Air Nasal Cannula O2 Flow Rate 3.0 Intake and Output 03/18/17 03/18/17 03/19/17 15:00 23:00 07:00 Intake Total 1250 ml 4480 ml 600 ml Balance 1250 ml 4480 ml 600 ml AIDEE HARGROVE K III DO Mar 19, 2017 11:20
[2017-03-19] MEDS ORDERED: POTASSIUM CHLORIDE 20 MEQ TABLET.ER. PO ONE (12:00)
[2017-03-19 19:00] VITALS: BP 139/70
[2017-03-19] MEDS: INSULIN DETEMIR 300 UNITS/3 ML INSULN.PEN. SQ SCH (21:22)
[2017-03-19 23:00] VITALS: BP 126/80
[2017-03-20] MEDS: IV 1/2 NORMAL SALINE 1,000 ML IV SCH ×2 (04:11→12:11)
[2017-03-20 05:36] LABS: CALCIUM 8.6 mg/dL (8.5-10.1); CREATININE 0.9 mg/dL (0.7-1.3); GFR 91.3
[2017-03-20 05:41] LABS: POTASSIUM 2.9 mmol/L (3.5-5.1)
[2017-03-20 05:45] LABS: BASO % 1 % (0-3); EOS % 1 % (0-3); HEMATOCRIT 39.9 % (39.0-53.0); HEMOGLOBIN 13.7 g/dL (13.0-17.5); LYMPH # 2.7 x10^3/uL (1.0-4.8); LYMPH % 37 % (24-48); MEAN CORPUSCULAR HEMOGLOBIN 32 pg (25-35); MEAN CORPUSCULAR HGB CONC 34 g/dL (31-37); MEAN CORPUSCULAR VOLUME 93 fL (79-100); MONO % 10 % (0-9); NEUT % 52 % (31-73); PLATELET COUNT 132 x10^3/uL (140-400); RED CELL DISTRIBUTION WIDTH 14.3 % (11.5-14.5); WHITE BLOOD COUNT 7.3 x10^3/uL (4.0-11.0)
[2017-03-20] MEDS ORDERED: POTASSIUM CHLORIDE 20 MEQ TABLET.ER. PO ONE ×3 (06:30→15:00)
[2017-03-20 08:00] VITALS: BP 121/80
[2017-03-20] MEDS: glipiZIDE 5 MG TABLET PO SCH (08:38)
[2017-03-20] MEDS: ASPIRIN CHEWABLE 81 MG TABLET. PO SCH (08:39)
[2017-03-20] MEDS: POTASSIUM & SODIUM PHOSPHATES PACKET. PO SCH (08:39)
[2017-03-20] MEDS: BACITRACIN TOPICAL OINT 14GM TUBE. TP SCH (08:40)
[2017-03-20] MEDS: INSULIN ASPART 300 UNITS/3 ML INSULN.PEN SQ SCH ×4 (08:52→12:08)
[2017-03-20 11:00] VITALS: BP 101/55
--- NOTE | 2017-03-20 14:36 | PDOC ---
PROGRESS NOTES Chief Complaint Chief Complaint 1. DKA 2. New type 1 DM per ICU physician diagnosis likely features of DM2 as well 3 morbid obesity, BMI 65 (sixty-five) 4. Hypokalemia 5. Hypophosphatemia 6 MIld protein malnutrition due to DM 8. DAE, vasomotor History of Present Illness History of Present Illness Patient seen and examined. No acute events overnight. Patient denies chest pain , shortness of breath, dizziness, weakness, fevers/chills. Complains of rash in groin area. Vitals Vitals Vital Signs Date Time Temp Pulse Resp B/P (MAP) Pulse Ox O2 Delivery O2 Flow Rate FiO2 03/20/17 11:00 98.4 82 18 101/55 (70) 93 BiPAP/CPAP 98.4 03/19/17 08:00 3.0 Physical Exam Physical Exam Skin: yeast rash in groin region General: Alert, Oriented X3, Cooperative, No acute distress, Other (super morbidly obese with a BMI 64.5) Heart: Regular rate, No murmurs Abdomen: Normal bowel sounds, Soft, No tenderness, No hepatosplenomegaly, No masses Extremities: No clubbing, No cyanosis, No edema, Normal pulses, No tenderness/ swelling Labs LABS Laboratory Tests Test 03/19/17 16:46 03/19/17 21:09 03/20/17 04:35 03/20/17 07:31 Glucose (Fingerstick) 238 mg/dL (70-99) 237 mg/dL (70-99) 265 mg/dL (70-99) White Blood Count 7.3 x10^3/uL (4.0-11.0) Red Blood Count 4.30 x10^6/uL (4.30-5.70) Hemoglobin 13.7 g/dL (13.0-17.5) Hematocrit 39.9 % (39.0-53.0) Mean Corpuscular Volume 93 fL (79-100) Mean Corpuscular Hemoglobin 32 pg (25-35) Mean Corpuscular Hemoglobin Concent 34 g/dL (31-37) Red Cell Distribution Width 14.3 % (11.5-14.5) Platelet Count 132 x10^3/uL (140-400) Neutrophils (%) (Auto) 52 % (31-73) Lymphocytes (%) (Auto) 37 % (24-48) Monocytes (%) (Auto) 10 % (0-9) Eosinophils (%) (Auto) 1 % (0-3) Basophils (%) (Auto) 1 % (0-3) Neutrophils # (Auto) 3.8 x10^3uL (1.8-7.7) Lymphocytes # (Auto) 2.7 x10^3/uL (1.0-4.8) Monocytes # (Auto) 0.7 x10^3/uL (0.0-1.1) Eosinophils # (Auto) 0.1 x10^3/uL (0.0-0.7) Basophils # (Auto) 0.0 x10^3/uL (0.0-0.2) Sodium Level 141 mmol/L (136-145) Potassium Level 2.9 mmol/L (3.5-5.1) Chloride Level 104 mmol/L (98-107) Carbon Dioxide Level 26 mmol/L (21-32) Anion Gap 11 (6-14) Blood Urea Nitrogen 9 mg/dL (8-26) Creatinine 0.9 mg/dL (0.7-1.3) Estimated GFR (Cockcroft-Gault) 91.3 Glucose Level 279 mg/dL (70-99) Calcium Level 8.6 mg/dL (8.5-10.1) Test 03/20/17 11:30 Glucose (Fingerstick) 322 mg/dL (70-99) Review of Systems Review of Systems +uncomfortable rash in groin area. Denies chest pain, shortness of breath, fevers/chills. Assessment and Plan Assessmemt and Plan 1. DKA 2. New type 1 DM per ICU physician diagnosis likely features of DM2 as well 3 morbid obesity, BMI 65 (sixty-five) 4. Hypokalemia 5. Hypophosphatemia 6 MIld protein malnutrition due to DM 8. DAE, vasomotor 9. Yeast infection 10. proteinuria, diagnosed outpatient PLAN: Replace K+, hypokalemia Scripts in chart for insulin, NovoLog, Lantus Script in chart for Diflucan, yeast infection Script in chart for lisinopril, Proteinuria Probable discharge to home today Problems: Comment Review of Relevant I have reviewed the following items gregory (where applicable) has been applied. Labs Laboratory Tests Test 03/18/17 16:24 03/18/17 21:39 03/19/17 07:41 03/19/17 11:28 Glucose (Fingerstick) 251 mg/dL (70-99) 297 mg/dL (70-99) 231 mg/dL (70-99) 333 mg/dL (70-99) Test 03/19/17 16:46 03/19/17 21:09 03/20/17 04:35 03/20/17 07:31 Glucose (Fingerstick) 238 mg/dL (70-99) 237 mg/dL (70-99) 265 mg/dL (70-99) White Blood Count 7.3 x10^3/uL (4.0-11.0) Red Blood Count 4.30 x10^6/uL (4.30-5.70) Hemoglobin 13.7 g/dL (13.0-17.5) Hematocrit 39.9 % (39.0-53.0) Mean Corpuscular Volume 93 fL (79-100) Mean Corpuscular Hemoglobin 32 pg (25-35) Mean Corpuscular Hemoglobin Concent 34 g/dL (31-37) Red Cell Distribution Width 14.3 % (11.5-14.5) Platelet Count 132 x10^3/uL (140-400) Neutrophils (%) (Auto) 52 % (31-73) Lymphocytes (%) (Auto) 37 % (24-48) Monocytes (%) (Auto) 10 % (0-9) Eosinophils (%) (Auto) 1 % (0-3) Basophils (%) (Auto) 1 % (0-3) Neutrophils # (Auto) 3.8 x10^3uL (1.8-7.7) Lymphocytes # (Auto) 2.7 x10^3/uL (1.0-4.8) Monocytes # (Auto) 0.7 x10^3/uL (0.0-1.1) Eosinophils # (Auto) 0.1 x10^3/uL (0.0-0.7) Basophils # (Auto) 0.0 x10^3/uL (0.0-0.2) Sodium Level 141 mmol/L (136-145) Potassium Level 2.9 mmol/L (3.5-5.1) Chloride Level 104 mmol/L (98-107) Carbon Dioxide Level 26 mmol/L (21-32) Anion Gap 11 (6-14) Blood Urea Nitrogen 9 mg/dL (8-26) Creatinine 0.9 mg/dL (0.7-1.3) Estimated GFR (Cockcroft-Gault) 91.3 Glucose Level 279 mg/dL (70-99) Calcium Level 8.6 mg/dL (8.5-10.1) Test 03/20/17 11:30 Glucose (Fingerstick) 322 mg/dL (70-99) Laboratory Tests Test 03/19/17 16:46 03/19/17 21:09 03/20/17 04:35 03/20/17 07:31 Glucose (Fingerstick) 238 mg/dL (70-99) 237 mg/dL (70-99) 265 mg/dL (70-99) White Blood Count 7.3 x10^3/uL (4.0-11.0) Red Blood Count 4.30 x10^6/uL (4.30-5.70) Hemoglobin 13.7 g/dL (13.0-17.5) Hematocrit 39.9 % (39.0-53.0) Mean Corpuscular Volume 93 fL (79-100) Mean Corpuscular Hemoglobin 32 pg (25-35) Mean Corpuscular Hemoglobin Concent 34 g/dL (31-37) Red Cell Distribution Width 14.3 % (11.5-14.5) Platelet Count 132 x10^3/uL (140-400) Neutrophils (%) (Auto) 52 % (31-73) Lymphocytes (%) (Auto) 37 % (24-48) Monocytes (%) (Auto) 10 % (0-9) Eosinophils (%) (Auto) 1 % (0-3) Basophils (%) (Auto) 1 % (0-3) Neutrophils # (Auto) 3.8 x10^3uL (1.8-7.7) Lymphocytes # (Auto) 2.7 x10^3/uL (1.0-4.8) Monocytes # (Auto) 0.7 x10^3/uL (0.0-1.1) Eosinophils # (Auto) 0.1 x10^3/uL (0.0-0.7) Basophils # (Auto) 0.0 x10^3/uL (0.0-0.2) Sodium Level 141 mmol/L (136-145) Potassium Level 2.9 mmol/L (3.5-5.1) Chloride Level 104 mmol/L (98-107) Carbon Dioxide Level 26 mmol/L (21-32) Anion Gap 11 (6-14) Blood Urea Nitrogen 9 mg/dL (8-26) Creatinine 0.9 mg/dL (0.7-1.3) Estimated GFR (Cockcroft-Gault) 91.3 Glucose Level 279 mg/dL (70-99) Calcium Level 8.6 mg/dL (8.5-10.1) Test 03/20/17 11:30 Glucose (Fingerstick) 322 mg/dL (70-99) Medications Current Medications Potassium Chloride (Klor-Con) 20 meq PRN Q1HR PRN PO K level is 4 to 5 mEq/L; Start 03/17/17 at 03:45 Potassium Chloride (Klor-Con) 40 meq PRN Q1HR PRN PO K level is 3 to 3.9 mEq/L Last administered on 03/17/17 14:20; Start 03/17/17 at 03:45 Potassium Chloride (Klor-Con) 60 meq PRN Q1HR PRN PO K level < 3 mEq/L; Start 03/17/17 at 03:45 Sodium Chloride 1,000 ml @ 250 mls/hr Q4H IV ; Start 03/17/17 at 03:45; Stop 03/17/17 at 14:19; Status DC Sodium Chloride 1,000 ml @ 125 mls/hr Q8H IV Last administered on 03/19/17 17:50; Start 03/17/17 at 03:45 Dextrose/Sodium Chloride 1,000 ml @ 150 mls/hr Q6H40M IV Last administered on 03/17/17 08:04; Start 03/17/17 at 03:45; Stop 03/17/17 at 14:19; Status DC Insulin Human Regular 150 unit/ Sodium Chloride 151.5 ml @ 0 mls/hr CONT PRN PRN IV PER PROTOCOL Last administered on 03/17/17 05:05; Start 03/17/17 at 03 :45; Stop 03/17/17 at 14:19; Status DC Potassium Chloride (Klor-Con) 40 meq 1X ONCE PO Last administered on 05:06; Start 03/17/17 at 05:00; Stop 03/17/17 at 05:02; Status DC Ondansetron HCl (Zofran) 4 mg PRN Q6HRS PRN IV NAUSEA/VOMITING; Start at 08:45 Ondansetron HCl (Zofran Odt) 4 mg PRN Q6HRS PRN PO NAUSEA/VOMITING; Start at 08:45 Acetaminophen (Tylenol) 500 mg PRN Q6HRS PRN PO MILD PAIN / TEMP Last administered on 03/17/17 08:50; Start 03/17/17 at 08:45 Acetaminophen/ Hydrocodone Bitart (Lortab 5/325) 1 tab PRN Q4HRS PRN PO PAIN; Start 03/17/17 at 08:45 Ibuprofen (Motrin) 400 mg PRN Q6HRS PRN PO INFLAMMATION; Start 03/17/17 at 08: 45 Calcium Carbonate/ Glycine (Tums) 500 mg PRN AFTMEALHC PRN PO INDIGESTION Last administered on 03/17/17 22:08; Start 03/17/17 at 08:45 Potassium Phos/ Sodium Phos (Phos-Nak) 1 pkt BID PO Last administered on 08:39; Start 03/17/17 at 11:30 Insulin Aspart (NovoLOG) 0-9 UNITS TIDWMEALS SQ Last administered on 12:08; Start 03/17/17 at 17:00 Dextrose (Dextrose 50%-Water Syringe) 12.5 gm PRN Q15MIN PRN IV SEE COMMENTS; Start 03/17/17 at 14:30 Insulin Detemir (Levemir) 15 units QHS SQ ; Start 03/17/17 at 21:00; Stop at 21:31; Status DC Metformin HCl (Glucophage) 850 mg BIDWMEALS PO Last administered on 03/17/17 18:02; Start 03/17/17 at 17:00; Stop 03/17/17 at 21:32; Status DC Insulin Detemir (Levemir) 15 units 1X ONCE SQ Last administered on 03/17/17 15:48; Start 03/17/17 at 16:00; Stop 03/17/17 at 16:01; Status DC Insulin Detemir (Levemir) 30 units QHS SQ Last administered on 03/17/17 22:28 ; Start 03/18/17 at 21:00; Stop 03/18/17 at 21:00; Status DC Insulin Aspart (NovoLOG) 10 units TIDAC SQ Last administered on 03/18/17 11: 35; Start 03/18/17 at 07:30; Stop 03/18/17 at 12:08; Status DC Metformin HCl (Glucophage) 1,000 mg BIDWMEALS PO Last administered on 08:38; Start 03/18/17 at 08:00 Aspirin (Children'S Aspirin) 81 mg DAILYWBKFT PO Last administered on 08:39; Start 03/18/17 at 08:00 Bacitracin 1 phuong TID TP Last administered on 03/20/17 08:40; Start 03/18/17 at 09:00 Glipizide (Glucotrol) 5 mg BIDBFRMEAL PO Last administered on 03/20/17 08:38 ; Start 03/18/17 at 10:00 Insulin Aspart (NovoLOG) 18 units TIDAC SQ Last administered on 03/20/17 12: 06; Start 03/18/17 at 16:30 Insulin Detemir (Levemir) 45 units QHS SQ Last administered on 03/19/17 21:22 ; Start 03/18/17 at 21:00 Potassium Chloride (Klor-Con) 40 meq 1X ONCE PO Last administered on 12:34; Start 03/19/17 at 12:00; Stop 03/19/17 at 12:01; Status DC Potassium Chloride (Klor-Con) 40 meq 1X ONCE PO Last administered on 06:38; Start 03/20/17 at 06:30; Stop 03/20/17 at 06:35; Status DC Potassium Chloride (Klor-Con) 40 meq 1X ONCE PO Last administered on 08:38; Start 03/20/17 at 10:30; Stop 03/20/17 at 10:31; Status DC Vitals/I & O Vital Sign - Last 24 Hours 03/19/17 03/19/17 03/19/17 03/20/17 19:00 19:58 23:00 08:00 Temp 98.7 98.7 98.7 98.7 Pulse 82 82 Resp 16 20 B/P (MAP) 139/70 (93) 126/80 (95) Pulse Ox 97 94 O2 Delivery Room Air Room Air 03/20/17 03/20/17 08:00 11:00 Temp 98.4 98.4 98.4 98.4 Pulse 71 82 Resp 19 18 B/P (MAP) 121/80 (94) 101/55 (70) Pulse Ox 93 93 O2 Delivery BiPAP/CPAP BiPAP/CPAP Intake and Output 03/19/17 03/19/17 03/20/17 15:00 23:00 07:00 Intake Total 860 ml 1200 ml Balance 860 ml 1200 ml AIDEE HARGROVE III DO Mar 20, 2017 14:36
[2017-03-20 15:00] VITALS: BP 104/71
[2017-03-20] MEDS ORDERED: GLIM1TAB PO (15:21)
[2017-03-20] MEDS ORDERED: INSU100I17 SQ (15:22)
[2017-03-20] MEDS ORDERED: LISI10TA2 PO (15:23)
[2017-03-20] MEDS ORDERED: FLUC200T PO (15:23)
[2017-03-20] MEDS ORDERED: POTA20TA82 PO (15:24)
[2017-03-20] MEDS ORDERED: INSU100I13 SQ (15:24)
== END 2017-03-20 16:55 | disposition home or self-care (01) | DRG 682 ==
LOC: 1 WEST ICU 02:00 → 5 SOUTH 17:42
PROVIDERS: ADMIT Internal Medicine; ATTEND Internal Medicine
PROC: 5A09457 Assistance with Respiratory Ventilation, 24-96 Consecutive Hours, Continuous Positive Airway Pressure (ICD-10-PCS; principal; 2017-03-17)
DX: N17.0 Acute kidney failure with tubular necrosis (principal); E10.10 Type 1 diabetes mellitus with ketoacidosis without coma; E87.8 Other disorders of electrolyte and fluid balance, not elsewhere classified; E44.1 Mild protein-calorie malnutrition; E66.01 Morbid (severe) obesity due to excess calories; E87.1 Hypo-osmolality and hyponatremia; B37.9 Candidiasis, unspecified; Z68.44 Body mass index [BMI] 60.0-69.9, adult; E83.39 Other disorders of phosphorus metabolism; E87.6 Hypokalemia; Z79.82 Long term (current) use of aspirin; Z82.49 Family history of ischemic heart disease and other diseases of the circulatory system
CPT/HCPCS: 36415; 80048; 82962; 83036; 83735; 84100; 85025; 87641; 94660; J1815